=== PATIENT | male | born 1965 | race Caucasian/White ===

== ENCOUNTER 2020-02-27 19:59 | Emergency (ER) | payer MEDICAID ==
[~2020-02-27] VITALS: Ht 188 cm; Wt 86.2 kg
[2020-02-27] MEDS ORDERED: GABA800T11 PO (20:08)
[2020-02-27] MEDS ORDERED: INSU100V7 SQ (20:08)
[2020-02-27] MEDS ORDERED: INSU100C (20:08)
--- NOTE | 2020-02-27 20:30 | NUR ---
Patient discharged to home in stable condition. Verbal instructions for aftercare provided by Dr. Miguel MCKINNON. Patient verbalizes understanding of instructions. Stressed follow up or return to ER for worsening s/s. Patient ambulated with stable gait. Patient refused to sign homeless d/c checklist but was provided with resource packet.
[2020-02-27 20:32] VITALS: BP 125/73
== END 2020-02-27 20:44 | disposition home or self-care (01) ==
LOC: ER 20:04
DX: Z76.0 Encounter for issue of repeat prescription (principal); E10.40 Type 1 diabetes mellitus with diabetic neuropathy, unspecified; Z79.4 Long term (current) use of insulin; Z59.0 Homelessness
CPT/HCPCS: A4663

== ENCOUNTER 2022-05-08 16:11 | Inpatient (IN) | payer MEDICARE, OTHER ==
[~2022-05-08] VITALS: Ht 182.9 cm; Wt 99.8 kg
[~2022-05-08 16:11] MED LIST: GABA800T11 PO; INSU100C; INSU100V7 SQ
[2022-05-08] MEDS ORDERED: INSU100V7 SQ (17:20)
[2022-05-08] MEDS ORDERED: DIPH25TA22 PO (17:20)
[2022-05-08] MEDS ORDERED: ATOR40TA PO (17:20)
[2022-05-08] MEDS ORDERED: CARV12.52 PO (17:20)
[2022-05-08] MEDS ORDERED: CHOL200013 PO (17:20)
[2022-05-08] MEDS ORDERED: INSU100V42 SQ (17:20)
[2022-05-08] MEDS ORDERED: SEVE800T8 PO (17:20)
[2022-05-08] MEDS ORDERED: OLAN5TAB3 IM (17:20)
[2022-05-08] MEDS ORDERED: NIFE30TA91 PO (17:20)
[2022-05-08] MEDS ORDERED: NPH,100V2 SQ (17:20)
[2022-05-08] MEDS ORDERED: LOSA50TA39 PO (17:20)
[2022-05-08] MEDS ORDERED: ASCO500C6 PO (17:20)
[2022-05-08] MEDS ORDERED: TIOT18CA3 IH (17:20)
[2022-05-08] MEDS ORDERED: ACET-2154 PO (17:20)
[2022-05-08] MEDS ORDERED: HYDR-4075 PO (17:20)
--- NOTE | 2022-05-08 17:45 | NUR ---
No Beds available in Er, pt is on gurney in ER hallway.
--- NOTE | 2022-05-08 17:50 | NUR ---
Pt refused blood draw and EKG.
[2022-05-08] MEDS ORDERED: diphenhydrAMINE 50 MG/1 ML VIAL IM ONE (19:45)
[2022-05-08] MEDS ORDERED: HALOPERIDOL LACTATE 5 MG/1 ML VIAL IM ONE (19:45)
[2022-05-08] MEDS ORDERED: LORAZEPAM 2 MG/1 ML VIAL IM ONE (19:45)
[2022-05-08] MEDS ORDERED: LORAZEPAM 2 MG/1 ML VIAL ONE (20:03)
[2022-05-08] MEDS ORDERED: HALOPERIDOL LACTATE 5 MG/1 ML VIAL ONE (20:04)
[2022-05-08] MEDS ORDERED: diphenhydrAMINE 50 MG/1 ML VIAL ONE (20:04)
[2022-05-08 22:20] LABS: HEMATOCRIT 25.1 % (36.7-47.1); MEAN CORPUSCULAR HEMOGLOBIN 30.4 uug (23.8-33.4); PLATELET COUNT (AUTO) 205 K/uL (152-348)
[2022-05-08 22:51] LABS: CARBON DIOXIDE 23 mmol/L (21-32); CHLORIDE 97 mmol/L (98-107)
[2022-05-08 22:52] LABS: ALANINE AMINOTRANSFERASE 11 U/L (16-63); ALKALINE PHOSPHATASE 51 U/L (50-136); ASPARTATE AMINOTRANSFERASE 8 U/L (15-37); BILIRUBIN,DIRECT 0.1 mg/dL (0.0-0.2); BILIRUBIN,TOTAL 0.3 mg/dL (0.2-1.0); TOTAL PROTEIN, SERUM 7.4 g/dL (6.4-8.2)
[2022-05-08 22:56] LABS: CREATININE 7.5 mg/dL (0.6-1.3); GLUCOSE 305 mg/dL (74-106); UREA NITROGEN, BLOOD 82 mg/dL (7-18)
--- NOTE | 2022-05-08 23:02 | NUR ---
call to [facility] for admission.
--- NOTE | 2022-05-08 23:17 | NUR ---
DR. Lagunas called back for admission.
[2022-05-08] MEDS ORDERED: ONDANSETRON 4 MG/2 ML VIAL IV PRN (23:30)
[2022-05-08] MEDS ORDERED: ACETAMINOPHEN 325 MG TABLET PO PRN (23:30)
[2022-05-08] MEDS ORDERED: INSULIN REGULAR, HUMAN 300 UNITS/3 ML VIAL SQ PRN (23:30)
[2022-05-08] MEDS ORDERED: DEXTROSE 50% 50 ML DISP.SYRIN IV PRN (23:30)
--- NOTE | 2022-05-09 02:25 | NUR ---
Admitted from ER va
--- NOTE | 2022-05-09 02:25 | NUR ---
Admitted from ER via hospital bed, awake alert to self, not in resp distress. Sinus rhythm on tele. Routine admission care done, oriented to room, initiated care plans. Skin assessment performed, refused to check his back, uncooperative with care. Call light within easy reach and instructed.
--- NOTE | 2022-05-09 02:35 | NUR ---
Transfered to 3rd floor by [place] nursing art supervisor.
[2022-05-09 03:15] VITALS: BP 170/95
--- NOTE | 2022-05-09 06:00 | NUR ---
Patient c/o SOB, O2 sat @ 89% on 2L/min via nc. HOB elevated, increased O2 @ 4L/min via nc tolerated well, O2 sat went up to 93%.
[2022-05-09] MEDS: BLOOD SUGAR DIAGNOSTIC 1 EACH STRIP VI SCH ×5 (06:06→20:56)
[2022-05-09 08:07] LABS: HEMATOCRIT 26.8 % (36.7-47.1); MEAN CORPUSCULAR HEMOGLOBIN 30.5 uug (23.8-33.4); PLATELET COUNT (AUTO) 216 K/uL (152-348)
[2022-05-09 08:41] LABS: ALANINE AMINOTRANSFERASE 12 U/L (16-63); ALKALINE PHOSPHATASE 55 U/L (50-136); ASPARTATE AMINOTRANSFERASE < 5 U/L (15-37); BILIRUBIN,TOTAL 0.3 mg/dL (0.2-1.0); CARBON DIOXIDE 22 mmol/L (21-32); CHLORIDE 97 mmol/L (98-107); PHOSPHOROUS 7.3 mg/dL (2.5-4.9); TOTAL PROTEIN, SERUM 7.3 g/dL (6.4-8.2)
[2022-05-09] MEDS: INSULIN REGULAR, HUMAN 300 UNIT/3 ML VIAL SQ PRN ×2 (08:46→11:46)
[2022-05-09] MEDS: HEPARIN SODIUM,PORCINE 5,000 UNITS/ML VIAL SQ SCH ×2 (08:47→17:08)
[2022-05-09 09:23] LABS: CREATININE 7.7 mg/dL (0.6-1.3); GLUCOSE 335 mg/dL (74-106); UREA NITROGEN, BLOOD 85 mg/dL (7-18)
[2022-05-09] MEDS: hydrALAZINE HCL 20 MG/1 ML VIAL IV PRN ×3 (10:22→20:51)
[2022-05-09 11:19] VITALS: BP 185/96
--- NOTE | 2022-05-09 11:29 | NUR ---
WOUND CARE CONSULT: PT REFUSED FULL SKIN ASSESSMENT. DRY WOUNDS NOTED TO LEFT HEEL AND PLANTAR FOOT, PRESENT ON ADMISSION. DPM CONSULT CALLED TO DR FLORES. DISCUSSED SKIN PROTECTION WITH NURSING STAFF. IN AGREEMENT WITH PLAN OF CARE.
[2022-05-09] MEDS ORDERED: REMEDY ESSENTIAL ZINC PASTE 113 GM TOP PRN (11:30)
[2022-05-09 12:30] VITALS: BP 180/91
[2022-05-09] MEDS: MORPHINE SULFATE 2 MG/1 ML DISP.SYRIN IV PRN ×2 (15:49→21:01)
[2022-05-09 16:29] LABS: *AMPHETAMINE, URINE NEGATIVE (NEGATIVE); *CANNABINOID, URINE NEGATIVE (NEGATIVE); *COCCAINE, URINE NEGATIVE (NEGATIVE); *OPIATE, URINE NEGATIVE (NEGATIVE); *PHENCYCLIDINE SCREEN,URINE NEGATIVE (NEGATIVE)
[2022-05-09 16:42] VITALS: BP 166/88
[2022-05-09] MEDS: AMMONIUM LACTATE 12% LOTION 225 GM BOTTLE TP SCH (17:08)
--- NOTE | 2022-05-09 23:59 | NUR ---
PT.SLEEPING,NO S/S OF DISTRESS OR PAIN NOTED.
[2022-05-10 00:19] VITALS: BP 162/85
[2022-05-10] MEDS: MORPHINE SULFATE 2 MG/1 ML DISP.SYRIN IV PRN ×6 (01:06→22:08)
[2022-05-10] MEDS: hydrALAZINE HCL 20 MG/1 ML VIAL IV PRN (05:00)
[2022-05-10 05:02] VITALS: BP 160/79
--- NOTE | 2022-05-10 06:31 | NUR ---
medicated with morphine sulfate 2 mg as ordered for gen pain, bp high 160/79,no c/o headache,slightly flushed fsce. apresoline given iv.will monitor closely.dialysis today.
[2022-05-10 07:21] LABS: HEMATOCRIT 25.3 % (36.7-47.1); MEAN CORPUSCULAR VOLUME 91.6 fL (73.0-96.2); PLATELET COUNT (AUTO) 200 K/uL (152-348)
[2022-05-10 07:44] LABS: CREATININE 6.8 mg/dL (0.6-1.3); PHOSPHOROUS 6.4 mg/dL (2.5-4.9); POTASSIUM 5.6 mmol/L (3.5-5.1)
[2022-05-10] MEDS: INSULIN REGULAR, HUMAN 300 UNIT/3 ML VIAL SQ PRN ×3 (08:08→16:33)
[2022-05-10] MEDS: HEPARIN SODIUM,PORCINE 5,000 UNITS/ML VIAL SQ SCH (08:12)
[2022-05-10] MEDS: NIFEdipine XL 30 MG TABSR PO SCH ×2 (08:52→17:38)
[2022-05-10] MEDS: AMMONIUM LACTATE 12% LOTION 225 GM BOTTLE TP SCH ×2 (08:52→17:37)
[2022-05-10] MEDS: CARVEDILOL 12.5 MG TABLET PO SCH ×2 (08:52→17:37)
[2022-05-10] MEDS: BLOOD SUGAR DIAGNOSTIC 1 EACH STRIP VI SCH ×3 (11:12→20:31)
--- NOTE | 2022-05-10 11:16 | NUR ---
Call from Dr. Jennifer Cota for [facility] notifying patient may have possible DVT. Taty Saini NP notified.
[2022-05-10 11:30] VITALS: BP 161/82
[2022-05-10 11:48] VITALS: BP 161/84
[2022-05-10] MEDS ORDERED: OLANZAPINE 5 MG TABLET PO PRN (13:45)
[2022-05-10] MEDS ORDERED: INSULIN REGULAR, HUMAN 300 UNITS/3 ML VIAL SQ PRN (13:45)
[2022-05-10] MEDS ORDERED: DEXTROSE 50% 50 ML DISP.SYRIN IV PRN (13:45)
[2022-05-10] MEDS: APIXABAN 5 MG TABLET PO SCH ×2 (15:22→22:54)
[2022-05-10] MEDS ORDERED: FLUT1BLS IH (16:00)
[2022-05-10] MEDS ORDERED: CARVEDILOL 12.5 MG TABLET PO SCH (17:00)
[2022-05-10] MEDS: SEVELAMER CARBONATE 800 MG TABLET PO SCH (17:36)
[2022-05-10 18:13] VITALS: BP 139/76
[2022-05-10] MEDS: IPRATROPIUM BROMIDE 0.5 MG/2.5 ML NEBU NEB SCH (19:30)
[2022-05-10 20:06] VITALS: BP 120/72
[2022-05-10] MEDS ORDERED: ATORVASTATIN 40 MG TABLET PO SCH (21:00)
[2022-05-10] MEDS ORDERED: INSULIN GLARGINE,HUM 300 UNITS/3 ML CARTRIDGE SQ SCH (21:00)
[2022-05-11 00:22] VITALS: BP 143/79
[2022-05-11] MEDS: MORPHINE SULFATE 2 MG/1 ML DISP.SYRIN IV PRN ×3 (04:05→13:34)
[2022-05-11 04:10] VITALS: BP 135/71
[2022-05-11] MEDS: IPRATROPIUM BROMIDE 0.5 MG/2.5 ML NEBU NEB SCH ×3 (04:27→13:57)
[2022-05-11] MEDS: BLOOD SUGAR DIAGNOSTIC 1 EACH STRIP VI SCH ×3 (06:41→16:30)
[2022-05-11 07:06] LABS: HEPATITIS B SURFACE AG Negative (Negative)
[2022-05-11 08:41] LABS: HEMATOCRIT 24.7 % (36.7-47.1); MEAN CORPUSCULAR HEMOGLOBIN 30.6 uug (23.8-33.4); MEAN CORPUSCULAR VOLUME 91.3 fL (73.0-96.2); PLATELET COUNT (AUTO) 230 K/uL (152-348)
[2022-05-11] MEDS: CARVEDILOL 12.5 MG TABLET PO SCH (08:55)
[2022-05-11] MEDS: SEVELAMER CARBONATE 800 MG TABLET PO SCH ×2 (08:55→12:43)
[2022-05-11] MEDS: APIXABAN 5 MG TABLET PO SCH (08:56)
[2022-05-11] MEDS: NIFEdipine XL 30 MG TABSR PO SCH (08:57)
[2022-05-11] MEDS: AMMONIUM LACTATE 12% LOTION 225 GM BOTTLE TP SCH (08:59)
[2022-05-11] MEDS ORDERED: ASCORBIC ACID 500 MG TABLET PO SCH (09:00)
[2022-05-11] MEDS ORDERED: CHOLECALCIFEROL 400 UNITS TABLET PO SCH (09:00)
[2022-05-11] MEDS ORDERED: SPIRIVA INH SCH (09:00)
[2022-05-11] MEDS ORDERED: [UNRECOGNIZED DRUG - OTHER] INH SCH (09:00)
[2022-05-11] MEDS ORDERED: FLUTICASONE/VILANTEROL 1 EACH BLST.W.DEV IH SCH (09:00)
[2022-05-11 09:09] LABS: MAGNESIUM 2.1 mg/dL (1.8-2.4); PHOSPHOROUS 7.3 mg/dL (2.5-4.9); POTASSIUM 5.4 mmol/L (3.5-5.1)
[2022-05-11] MEDS ORDERED: APIX5TAB PO ×2 (10:26)
[2022-05-11 11:13] VITALS: BP 143/70
[2022-05-11 11:43] VITALS: BP 131/60
[2022-05-11] MEDS: INSULIN REGULAR, HUMAN 300 UNIT/3 ML VIAL SQ PRN (12:45)
[2022-05-11 15:08] VITALS: BP 133/71
== END 2022-05-11 18:00 | DRG 640 ==
LOC: ER 16:13 → TELE3 23:21 → MEDSURG3 05-11 06:50
PROVIDERS: ADMIT Nurse Practitioner Acute Care; ATTEND Nurse Practitioner Acute Care
PROC: 5A1D70Z Performance of Urinary Filtration, Intermittent, Less than 6 Hours Per Day (ICD-10-PCS; principal; 2022-05-09)
DX: E87.79 Other fluid overload (principal); N18.6 End stage renal disease; R53.2 Functional quadriplegia; E44.0 Moderate protein-calorie malnutrition; D68.69 Other thrombophilia; I12.0 Hypertensive chronic kidney disease with stage 5 chronic kidney disease or end stage renal disease; I82.411 Acute embolism and thrombosis of right femoral vein; I82.431 Acute embolism and thrombosis of right popliteal vein; E87.5 Hyperkalemia; E11.22 Type 2 diabetes mellitus with diabetic chronic kidney disease; Z99.2 Dependence on renal dialysis; Z91.15 Patient's noncompliance with renal dialysis; Z79.4 Long term (current) use of insulin; D63.1 Anemia in chronic kidney disease; E87.1 Hypo-osmolality and hyponatremia; E88.09 Other disorders of plasma-protein metabolism, not elsewhere classified; L85.3 Xerosis cutis; Z79.01 Long term (current) use of anticoagulants; D50.9 Iron deficiency anemia, unspecified; F29 Unspecified psychosis not due to a substance or known physiological condition; F15.10 Other stimulant abuse, uncomplicated; Z20.822 Contact with and (suspected) exposure to COVID-19
CPT/HCPCS: 36415; 71045; 83735; 84100; 84484; 85025; 86706; 87340; 90937; 93005; 94640; 94664; G0378; J0360; J1200; J1630; J1644; J1815; J2060; J2270; J3590; J7040